=== PATIENT | female | born 2000 | race Hispanic/Latino ===

== ENCOUNTER 2019-12-25 09:26 | Outpatient (CLI) | payer OTHER ==
--- NOTE | 2019-12-25 13:34 | RAD ---
RIGHT KNEE: 12/25/19 Four views. HISTORY: Osteoarthritis. Joint spaces are normally maintained. There is no fracture or acute osseous lesion. There is no evide nce of joint effusion. There is no evidence of degenerative change or osteoarthritic change. IMPRESSION: Unremarkable right knee. POS: C
== END 2019-12-25 09:27 | disposition home or self-care (01) ==
LOC: BICRAD 09:26
PROVIDERS: ATTEND Family Medicine
DX: M19.90 Unspecified osteoarthritis, unspecified site (principal)

== ENCOUNTER 2020-10-25 07:57 | Emergency (ER) | payer OTHER, SELFPAY ==
[2020-10-25] MEDS ORDERED: Ketorolac Tromethamine 30 MG/ML VIAL ONE (08:40)
[2020-10-25 08:46] LABS: #Eosinphils 0.1 thou/uL (0.0-0.7); #Lymphocytes 1.4 thou/uL (1.20-3.40); #Monocytes 0.6 thou/uL (0.11-0.59); #Neutrophils 4.9 thou/uL (1.40-6.50); %Basophils 0.5 % (0.0-1.0); %Eosinophils 1.7 % (0.0-10.0); %Lymphocytes 19.3 % (21.0-51.0); %Monocytes 8.1 % (0.0-10.0); %Neutrophils 70.4 % (42.0-75.0); Hemoglobin 13.6 g/dL (12.0-16.0); Mean Corpuscular HGB CONC 33.6 g/dL (32.0-36.0); Mean Corpuscular Hemoglobin 31.1 pg (27.0-31.0); Mean Corpuscular Volume 92.6 fL (78.0-98.0); Mean Platelet Volume 10.1 fL (7.4-10.4); Platelet Count 155 thou/uL (130-400); RBC Distribution Width 11.7 % (11.5-14.5); Red Blood Cell (RBC) Count 4.36 mill/uL (4.20-5.40)
[2020-10-25 09:01] LABS: BHCG - Serum Negative (NEGATIVE); Pregs Control Background? CLEAR/WHITE (CLR/WHITE); Pregs Control Bar Appear? YES (CONTROL BAR)
[2020-10-25 09:04] LABS: ALT (SGPT) 19 U/L (8-55); AST (SGOT) 18 U/L (5-34); Albumin 3.9 g/dL (3.5-5.0); Alkaline Phosphatase 99 U/L (40-110); Anion Gap 13 mmol/L (10-20); BUN (Urea Nitrogen) 9 mg/dL (7.0-18.7); Bilirubin, Total 0.6 mg/dL (0.2-1.2); Calc. Creatinine Clearance 0 mL/min (70-130); Calcium 8.7 mg/dL (7.8-10.44); Carbon Dioxide 26 mmol/L (22-29); Chloride 105 mmol/L (98-107); Globulin 2.3 g/dL (2.4-3.5); Glucose 94 mg/dL (70-105); Lipase 13 U/L (8-78); Potassium 3.7 mmol/L (3.5-5.1); Protein, Total 6.2 g/dL (6.0-8.3); Sodium 140 mmol/L (136-145)
== END 2020-10-25 09:13 | disposition home or self-care (01) ==
LOC: ERS 07:57
DX: R55 Syncope and collapse (principal); R10.30 Lower abdominal pain, unspecified; R42 Dizziness and giddiness
CPT/HCPCS: 80053; 83690; 84703; 85025; 93005; 96374; J1885